=== PATIENT | female | born 1955 | race Asian ===

== ENCOUNTER 2024-10-08 11:53 | Inpatient (IN) | payer OTHER ==
[~2024-10-08] VITALS: Ht 165.1 cm; Wt 107.5 kg
[2024-10-08] VITALS (13 sets, daily range): BP systolic 119; BP diastolic 44; PULSE 71–105; RESP 22–26; TEMP 98.9; O2SAT 94–100
[~2024-10-08 11:53] MED LIST: AMIO200T73 PO; AMOX500C2 PO
[2024-10-08] MEDS ORDERED: 0.9% SODIUM CHLORIDE 10 ML SYRINGE IVP PRN (12:00)
[2024-10-08] MEDS ORDERED: CALCIUM GLUCONATE 0.465 MEQ/ML 10 ML VIAL ONE (12:13)
[2024-10-08] MEDS ORDERED: NOREPINEPHRINE 8 MG/0.9 % NACL 250 ML IV ONE (12:15)
[2024-10-08 12:37] LABS: ABG BASE EXCESS 27.1 mmol/L (-2.0-3.0); ABG CARBOXYHEMOGLOBIN 1.8 % (0.5-1.5); ABG HCO3 47.4 mmol/L (21.0-28.0); ABG METHEMOGLOBIN 1.0 % (0.0-1.5); ABG OXYGEN CONTENT 12.7 mL/dL (15.0-23.0); ABG OXYGEN SATURATION 99.8 % (94.0-98.0); ABG OXYHEMOGLOBIN 97.0 % (94.0-98.0); ABG TOTAL HEMOGLOBIN 9.0 G/dL (12.0-16.0); FRACTIONATED INSPIRED OXYGEN 100.0 % (21-100.0); PO2, ARTERIAL BG 181.2 mmHg (83.0-108.0); SOURCE, BLOOD GAS ARTERIAL; TEMPERATURE, FAHRENHEIT, BG 97.8 FAHREN (96.0-98.6)
[2024-10-08 12:39] LABS: ABG PCO2 133 mmHg (32.0-45.0); ABG PH 7.229 (7.350-7.450); SITE, BLOOD GAS LFT RADIAL
[2024-10-08 12:40] LABS: ALLEN TEST, BLOOD GAS Positive; O2 DEVICE,BLOOD GAS BIPAP (ROOM AIR); SET RATE, BG 20.0 min.; SPONTANEOUS VT, BG 285 ml
[2024-10-08 12:41] LABS: PLATELET COUNT (AUTO) 233 K/uL (150-450); RED BLOOD CELL COUNT(AUTO) 2.69 MIL/uL (4.00-5.20); RED CELL DISTRIBUTION WIDTH 20.6 % (11.5-14.5); WHITE BLOOD COUNT (AUTO) 5.6 K/uL (4.5-11.0)
[2024-10-08] MEDS ORDERED: ETOMIDATE 2 MG/ML 10 ML VIAL ONE (12:44)
[2024-10-08] MEDS ORDERED: ROCURONIUM BROMIDE 10 MG/ML 5 ML VIAL ONE (12:45)
[2024-10-08 12:48] LABS: CALCIUM, TOTAL 8.6 mg/dL (8.8-10.5); CREATININE 0.80 mg/dL (0.60-1.30); GLOMERULAR FILTR. RATE CALC > 60 mL/min (>60); GLUCOSE,RANDOM 138 mg/dL (70-110); SODIUM SERUM 143 mmol/L (136-145); UREA NITROGEN, BLOOD 21 mg/dL (7-18)
[2024-10-08 12:56] LABS: LACTIC ACID 0.5 mmol/L (0.4-2.0)
[2024-10-08] MEDS ORDERED: PROPOFOL 1000 MG/ISO-OSM 100 ML ONE (12:57)
[2024-10-08] MEDS: CALCIUM GLUCONATE 100 MG/ML 10 ML IVP ONE (12:59)
[2024-10-08] MEDS: FUROSEMIDE 40 MG/4 ML VIAL IVP ONE (13:00)
[2024-10-08] MEDS ORDERED: SODIUM CHLORIDE 0.9% 500 ML IV ONE (13:05)
[2024-10-08 13:24] LABS: COVID AG,FIA SOURCE NASAL SWAB
[2024-10-08] MEDS: ETOMIDATE 2 MG/ML 10 ML VIAL IVP ONE (13:49)
[2024-10-08] MEDS: FUROSEMIDE 40 MG/4 ML VIAL IVP SCH (13:50)
[2024-10-08] MEDS: ROCURONIUM BROMIDE 10 MG/ML 5 ML VIAL IVP ONE ×2 (13:51→13:57)
[2024-10-08] MEDS: PROPOFOL 1000 MG/ISO-OSM 100 ML IV PRN (13:52)
[2024-10-08] MEDS: BUMETANIDE 0.25 MG/ML 4 ML VIAL IVP ONE (13:52)
[2024-10-08 14:18] LABS: APPEARANCE,URINE CLEAR (CLEAR); GLUCOSE, URINE (UA) NEGATIVE (NEGATIVE); LEUKOCYTE ESTERASE ,URINE NEGATIVE (NEGATIVE); NITRATE,URINE NEGATIVE (NEGATIVE); OCCULT BLOOD,URINE NEGATIVE (NEGATIVE); SPECIFIC GRAVITIY, URINE 1.013 (1.003-1.030)
[2024-10-08 14:22] LABS: TROPONIN I-HIGH SENSITIVITY 75 ng/L (<51)
[2024-10-08 14:26] LABS: ABG BASE EXCESS 24.0 mmol/L (-2.0-3.0); ABG CARBOXYHEMOGLOBIN 1.6 % (0.5-1.5); ABG HCO3 45.6 mmol/L (21.0-28.0); ABG METHEMOGLOBIN 1.0 % (0.0-1.5); ABG OXYGEN CONTENT 12.1 mL/dL (15.0-23.0); ABG OXYGEN SATURATION 99.7 % (94.0-98.0); ABG OXYHEMOGLOBIN 97.1 % (94.0-98.0); ABG PH 7.484 (7.350-7.450); ABG TOTAL HEMOGLOBIN 8.4 G/dL (12.0-16.0); FRACTIONATED INSPIRED OXYGEN 100.0 % (21-100.0); PO2, ARTERIAL BG 242.5 mmHg (83.0-108.0); SOURCE, BLOOD GAS ARTERIAL; TEMPERATURE, FAHRENHEIT, BG 99.7 FAHREN (96.0-98.6)
[2024-10-08 14:29] LABS: INFLUENZA TYPE A NEGATIVE FOR TYPE A (NEGATIVE); INFLUENZA TYPE B NEGATIVE FOR TYPE B (NEGATIVE); SARS-COV2 (COVID) ANTIGEN,FIA Negative (Negative)
[2024-10-08 14:31] LABS: ABG PCO2 65 mmHg (32.0-45.0)
[2024-10-08 14:32] LABS: ABG A-A DIFF O2 404.2 mmHg (10-20.0); O2 DEVICE,BLOOD GAS VENTILATOR (ROOM AIR); PATIENT RATE, BG 26.0 min.; PEEP,BG 5 cm H2O; SET RATE, BG 26.0 min.; SITE, BLOOD GAS ARTERIAL LINE; SPONTANEOUS VT, BG 447 ml; VT, ABG 440 ml
[2024-10-08] MEDS: ALBUTEROL SULFATE 2.5 MG/0.5 ML NEB SOLUTION NEB SCH (14:45)
[2024-10-08] MEDS: IPRATROPIUM BROMIDE 0.5 MG/2.5 ML NEB SOLUTION NEB SCH (14:45)
[2024-10-08] MEDS: DOXYCYCLINE HYCLATE 100 MG in DEXTROSE 5%-WATER 100 ML IV SCH (14:53)
[2024-10-08] MEDS: CefTRIAXone SODIUM 2 GM in DEXTROSE 5%-WATER 50 ML IV SCH (14:53)
[2024-10-08] MEDS: SODIUM CHLORIDE 0.9% 250 ML IV ONE (15:08)
[2024-10-08] MEDS: FentaNYL CIT 1000MCG/0.9% NACL 100 ML IV PRN (17:17)
[2024-10-08] MEDS ORDERED: MULT-1303 PO (18:28)
[2024-10-08] MEDS ORDERED: ASCO500 PO (18:28)
[2024-10-08] MEDS ORDERED: APIX5TAB PO (18:28)
[2024-10-08] MEDS ORDERED: LACT1CAP79 PO (18:28)
[2024-10-08] MEDS ORDERED: ATOR40TA28 PO (18:28)
[2024-10-08] MEDS ORDERED: DOXY-171 PO (18:28)
[2024-10-08] MEDS ORDERED: TIOT4MIS3 IH (18:28)
[2024-10-08] MEDS ORDERED: ASPI-1450 PO (18:28)
[2024-10-08] MEDS ORDERED: FURO40TA6 PO (18:28)
[2024-10-08] MEDS ORDERED: PANT-31 PO (18:28)
[2024-10-08] MEDS ORDERED: ZINC50CA3 PO (18:28)
[2024-10-08] MEDS ORDERED: IPRA3AMP24 NEB (18:28)
[2024-10-08] MEDS ORDERED: MIDO5TAB29 PO (18:28)
[2024-10-08] MEDS ORDERED: CARV12 PO (18:28)
[2024-10-08] MEDS: ACETYLCYSTEINE 10% 100 MG/ML 4 ML NEB SOLUTION NEB SCH (20:43)
[2024-10-08] MEDS: HEPARIN SODIUM,PORCINE 5,000 UNITS/ML VIAL SQ SCH (21:13)
[2024-10-09] VITALS (30 sets, daily range): BP systolic 100–125; BP diastolic 40–45; PULSE 70–93; RESP 20–23; TEMP 97.2–98.6; O2SAT 94–100
[2024-10-09] MEDS ORDERED: MORPHINE SULFATE 2 MG/ML SYRINGE IVP PRN (01:15)
[2024-10-09] MEDS ORDERED: IPRATROPIUM BROMIDE 0.5 MG/2.5 ML NEB SOLUTION NEB PRN (01:15)
[2024-10-09] MEDS ORDERED: ACETAMINOPHEN 325 MG TABLET PO PRN (01:15)
[2024-10-09] MEDS ORDERED: HYDROCODONE/ACETAMINOPHEN 5-325 MG TABLET PO PRN (01:15)
[2024-10-09] MEDS ORDERED: MAGNESIUM HYDROXIDE SUSPENSION 30 ML UDCUP PO PRN (01:15)
[2024-10-09] MEDS ORDERED: ONDANSETRON HCL 4 MG/2 ML VIAL IVP PRN (01:15)
[2024-10-09] MEDS ORDERED: BISACODYL 10 MG RECTAL RECTAL SUPPOSITORY PR PRN (01:15)
[2024-10-09 02:28] LABS: PLATELET COUNT (AUTO) 211 K/uL (150-450); RED BLOOD CELL COUNT(AUTO) 2.50 MIL/uL (4.00-5.20); RED CELL DISTRIBUTION WIDTH 20.1 % (11.5-14.5); WHITE BLOOD COUNT (AUTO) 3.4 K/uL (4.5-11.0)
[2024-10-09 02:37] LABS: CALCIUM, TOTAL 8.1 mg/dL (8.8-10.5); CREATININE 0.77 mg/dL (0.60-1.30); GLOMERULAR FILTR. RATE CALC > 60 mL/min (>60); GLUCOSE,RANDOM 159 mg/dL (70-110); SODIUM SERUM 144 mmol/L (136-145); UREA NITROGEN, BLOOD 22 mg/dL (7-18)
[2024-10-09 02:47] LABS: TROPONIN I-HIGH SENSITIVITY 88 ng/L (<51)
[2024-10-09] MEDS ORDERED: POTASSIUM CHL 10 MEQ/WATER 50 ML IV PRN ×2 (03:00)
[2024-10-09] MEDS ORDERED: POTASSIUM CHLORIDE 10% 40 MEQ/30 ML LIQUID UDCUP NG PRN ×2 (03:00)
[2024-10-09] MEDS: ALBUTEROL SULFATE 2.5 MG/0.5 ML NEB SOLUTION NEB PRN (03:01)
[2024-10-09] MEDS ORDERED: SODIUM CHLORIDE 0.9% 250 ML IV ONE ×2 (03:17→15:38)
[2024-10-09] MEDS: POTASSIUM CHL 10 MEQ/WATER 50 ML IV PRN (03:22)
[2024-10-09] MEDS ORDERED: MAGNESIUM SULFATE 4 GM/WATER 100 ML IV PRN (08:30)
[2024-10-09] MEDS ORDERED: MAGNESIUM OXIDE 400 MG TABLET PO PRN (08:30)
[2024-10-09] MEDS: PANTOPRAZOLE SODIUM 40 MG/VIAL IVP SCH (08:34)
[2024-10-09] MEDS: ETHYL ALCOHOL 62% ANTISEPTIC NASAL SANITIZER 0.6 ML AMPUL NASAL SCH (08:34)
[2024-10-09] MEDS: AMIODARONE HCL 200 MG TABLET NG SCH (08:35)
[2024-10-09] MEDS: DOCUSATE SODIUM 100 MG CAPSULE NG SCH (08:35)
[2024-10-09] MEDS: APIXABAN 5 MG TABLET NG SCH (08:36)
[2024-10-09] MEDS: ASPIRIN 81 MG CHEWABLE TABLET NG SCH (08:36)
[2024-10-09] MEDS: ASCORBIC ACID 500 MG TABLET PO SCH (08:36)
[2024-10-09] MEDS: DOCUSATE SODIUM 100 MG/10 ML LIQUID UDCUP PO SCH (11:30)
[2024-10-09] MEDS: SODIUM CHLORIDE 0.9% 250 ML IV ONE (11:45)
[2024-10-09] MEDS: POTASSIUM CHL 10 MEQ/WATER 50 ML IV SCH ×2 (11:45→19:56)
[2024-10-09 12:01] LABS: ABG BASE EXCESS 17.7 mmol/L (-2.0-3.0); ABG CARBOXYHEMOGLOBIN 1.2 % (0.5-1.5); ABG HCO3 39.8 mmol/L (21.0-28.0); ABG METHEMOGLOBIN 0.3 % (0.0-1.5); ABG OXYGEN CONTENT 11.0 mL/dL (15.0-23.0); ABG OXYGEN SATURATION 96.0 % (94.0-98.0); ABG OXYHEMOGLOBIN 94.6 % (94.0-98.0); ABG PCO2 48 mmHg (32.0-45.0); ABG PH 7.545 (7.350-7.450); ABG TOTAL HEMOGLOBIN 8.2 G/dL (12.0-16.0); FRACTIONATED INSPIRED OXYGEN 40.0 % (21-100.0); PO2, ARTERIAL BG 77.5 mmHg (83.0-108.0); SITE, BLOOD GAS ARTERIAL LINE; SOURCE, BLOOD GAS ARTERIAL; TEMPERATURE, FAHRENHEIT, BG 98.2 FAHREN (96.0-98.6)
[2024-10-09 12:02] LABS: O2 DEVICE,BLOOD GAS VENTILATOR (ROOM AIR); PATIENT RATE, BG 22.0 min.; PEEP,BG 5 cm H2O; SET RATE, BG 22.0 min.; SPONTANEOUS VT, BG 425 ml; VT, ABG 440 ml
[2024-10-09 12:40] LABS: % IRON SATURATION 10.3 % (22-44); IRON, SERUM 29.0 mcg/dL (50-175)
[2024-10-09 12:55] LABS: LACTIC ACID 0.9 mmol/L (0.4-2.0)
[2024-10-09] MEDS: PIPERACILLIN/TAZO 3.375 GM/D5W 50 ML IV SCH (14:24)
[2024-10-09] MEDS ORDERED: DEXTROSE 50%-WATER 25 GM/50 ML SYRINGE IVP PRN (14:45)
[2024-10-09] MEDS: INSULIN LISPRO 100 UNITS/ML SQ PRN (16:23)
[2024-10-09] MEDS: MAGNESIUM SULFATE 2 GM/WATER 50 ML IV PRN (17:17)
[2024-10-09 17:29] LABS: CALCIUM, TOTAL 8.2 mg/dL (8.8-10.5); CREATININE 0.80 mg/dL (0.60-1.30); GLOMERULAR FILTR. RATE CALC > 60 mL/min (>60); GLUCOSE,RANDOM 167 mg/dL (70-110); SODIUM SERUM 144 mmol/L (136-145); UREA NITROGEN, BLOOD 26 mg/dL (7-18)
[2024-10-09 19:50] LABS: GLUCOMETER DEV NAME(LOC) ICUN.6; GLUCOSE,POINT OF CARE 159 MG/DL (70-110)
[2024-10-09] MEDS: ATORVASTATIN CALCIUM 40 MG TABLET NG SCH (20:26)
[2024-10-09] MEDS: DOCUSATE SODIUM 100 MG/10 ML LIQUID UDCUP NG SCH (20:26)
[2024-10-10] VITALS (28 sets, daily range): BP systolic 102–139; BP diastolic 42–54; PULSE 70–94; RESP 17–30; TEMP 96.7–97.7; O2SAT 90–99
[2024-10-10 02:11] LABS: GLUCOMETER DEV NAME(LOC) ICU.S7; GLUCOSE,POINT OF CARE 183 MG/DL (70-110)
[2024-10-10] MEDS ORDERED: SODIUM CHLORIDE 0.9% 250 ML IV ONE ×2 (03:39→10:27)
[2024-10-10 05:46] LABS: GLUCOMETER DEV NAME(LOC) ICU.S7; GLUCOSE,POINT OF CARE 172 MG/DL (70-110)
[2024-10-10 05:48] LABS: PLATELET COUNT (AUTO) 240 K/uL (150-450); RED BLOOD CELL COUNT(AUTO) 2.63 MIL/uL (4.00-5.20); RED CELL DISTRIBUTION WIDTH 20.8 % (11.5-14.5); WHITE BLOOD COUNT (AUTO) 3.6 K/uL (4.5-11.0)
[2024-10-10 06:16] LABS: ASPARTATE AMINOTRANSFERASE 19 U/L (15-37); CALCIUM, TOTAL 8.1 mg/dL (8.8-10.5); CREATININE 0.92 mg/dL (0.60-1.30); GLOMERULAR FILTR. RATE CALC > 60 mL/min (>60); GLUCOSE,RANDOM 196 mg/dL (70-110); MAGNESIUM MATERNAL 1.80 mg/dL (4.90-7.30); PHOSPHORUS 3.3 mg/dL (2.5-4.9); SODIUM SERUM 143 mmol/L (136-145); TOTAL PROTEIN, SERUM 5.5 g/dL (6.4-8.2); UREA NITROGEN, BLOOD 28 mg/dL (7-18)
[2024-10-10] MEDS: POTASSIUM CHL 10 MEQ/WATER 50 ML IV PRN (08:15)
[2024-10-10] MEDS: POTASSIUM CHL 10 MEQ/WATER 50 ML IV SCH ×2 (08:40→14:54)
[2024-10-10] MEDS: DOCUSATE SODIUM 100 MG CAPSULE GT SCH (10:45)
[2024-10-10] MEDS: POLYETHYLENE GLYCOL 3350 17 GM PACKET GT SCH (11:23)
[2024-10-10] MEDS: SENNOSIDES 8.8 MG/5 ML SYRUP UDCUP GT ONE (11:23)
[2024-10-10] MEDS: POTASSIUM CHLORIDE 20 MEQ ER TABLET GT ONE (12:40)
[2024-10-10 13:31] LABS: GLUCOMETER DEV NAME(LOC) ICUN.6; GLUCOSE,POINT OF CARE 196 MG/DL (70-110)
[2024-10-10] MEDS: MIDAZOLAM HCL 100 MG in SODIUM CHLORIDE 0.9% 180 ML IV PRN (13:36)
[2024-10-10 15:14] LABS: ABG BASE EXCESS 15.1 mmol/L (-2.0-3.0); ABG CARBOXYHEMOGLOBIN 0.7 % (0.5-1.5); ABG HCO3 37.2 mmol/L (21.0-28.0); ABG METHEMOGLOBIN 0.0 % (0.0-1.5); ABG OXYGEN CONTENT 11.6 mL/dL (15.0-23.0); ABG OXYGEN SATURATION 96.1 % (94.0-98.0); ABG OXYHEMOGLOBIN 95.4 % (94.0-98.0); ABG PCO2 54 mmHg (32.0-45.0); ABG PH 7.473 (7.350-7.450); ABG TOTAL HEMOGLOBIN 8.5 G/dL (12.0-16.0); FRACTIONATED INSPIRED OXYGEN 40.0 % (21-100.0); PO2, ARTERIAL BG 87.5 mmHg (83.0-108.0); SOURCE, BLOOD GAS ARTERIAL; TEMPERATURE, FAHRENHEIT, BG 97.6 FAHREN (96.0-98.6)
[2024-10-10 15:15] LABS: APPEARANCE,SPUN,BODY FLUID CLEAR (CLEAR); APPEARANCE,UNSPUN,BODY FLUID TURBID (CLEAR); BASOPHILS,BODY FLUID 0 %; BODY FLUID RBC 38.0 /cu. mm.; COLOR,BODY FLUID LT YELLOW (LT YELLOW); EOSINOPHILS,BF (ANAL) 0 %; LYMPHOCYTES,BODY FLUID 17 %; MONOCYTES,BODY FLUID 3 %; NEUTROPHILS,BODY FLUID 80 %; PH, BODY FLUID 8.0; SPECIMENTYPE,BODY FLUID PLEURAL; TOTAL VOLUME,BODY FLUID 280 mL; WBC, BODY FLUID 299 /cu. mm.
[2024-10-10 15:17] LABS: ABG A-A DIFF O2 136.2 mmHg (10-20.0); O2 DEVICE,BLOOD GAS VENTILATOR (ROOM AIR); PATIENT RATE, BG 16.0 min.; SITE, BLOOD GAS ARTERIAL LINE; VENT MODE, BG CPAP (ROOM AIR)
[2024-10-10 15:18] LABS: CPAP, BG 5 cm H2O; PRESSURE SUPPORT, BG 8 cm H2O; SPONTANEOUS VT, BG 397 ml
[2024-10-10] MEDS: MAGNESIUM SULFATE 1 GM in DEXTROSE 5%-WATER 50 ML IV ONE (17:12)
[2024-10-10 19:06] LABS: GLUCOMETER DEV NAME(LOC) ICU.S7; GLUCOSE,POINT OF CARE 196 MG/DL (70-110)
[2024-10-11] VITALS (23 sets, daily range): BP systolic 27–132; BP diastolic 45–53; PULSE 70–87; RESP 14–22; TEMP 97.4–98.6; O2SAT 93–100
[2024-10-11 01:36] LABS: GLUCOMETER DEV NAME(LOC) ICUN.6; GLUCOSE,POINT OF CARE 198 MG/DL (70-110)
[2024-10-11 06:00] LABS: GLUCOMETER DEV NAME(LOC) ICU.S7; GLUCOSE,POINT OF CARE 225 MG/DL (70-110)
[2024-10-11 06:02] LABS: PLATELET COUNT (AUTO) 242 K/uL (150-450); RED BLOOD CELL COUNT(AUTO) 2.70 MIL/uL (4.00-5.20); RED CELL DISTRIBUTION WIDTH 21.0 % (11.5-14.5); WHITE BLOOD COUNT (AUTO) 2.9 K/uL (4.5-11.0)
[2024-10-11 06:53] LABS: CALCIUM, TOTAL 8.2 mg/dL (8.8-10.5); CREATININE 0.79 mg/dL (0.60-1.30); GLOMERULAR FILTR. RATE CALC > 60 mL/min (>60); GLUCOSE,RANDOM 232 mg/dL (70-110); SODIUM SERUM 141 mmol/L (136-145); UREA NITROGEN, BLOOD 33 mg/dL (7-18)
[2024-10-11 07:02] LABS: MAGNESIUM MATERNAL 1.8 mg/dL (4.90-7.30); PHOSPHORUS 3.5 mg/dL (2.5-4.9)
[2024-10-11 07:13] LABS: RBC MORPHOLOGY COMMENT ABNORMAL RBC MORPH
[2024-10-11] MEDS: *CLINICAL-LEVOFLOXACIN IVPB DOSING CLINICAL ONE (10:12)
[2024-10-11] MEDS ORDERED: POTASSIUM CHLORIDE 10% 40 MEQ/30 ML LIQUID UDCUP GT ONE (11:00)
[2024-10-11 11:26] LABS: ABG BASE EXCESS 9.9 mmol/L (-2.0-3.0); ABG CARBOXYHEMOGLOBIN 0.4 % (0.5-1.5); ABG HCO3 32.5 mmol/L (21.0-28.0); ABG METHEMOGLOBIN 0.1 % (0.0-1.5); ABG OXYGEN CONTENT 12.6 mL/dL (15.0-23.0); ABG OXYGEN SATURATION 97.6 % (94.0-98.0); ABG OXYHEMOGLOBIN 97.1 % (94.0-98.0); ABG PCO2 50 mmHg (32.0-45.0); ABG PH 7.446 (7.350-7.450); ABG TOTAL HEMOGLOBIN 9.1 G/dL (12.0-16.0); FRACTIONATED INSPIRED OXYGEN 40.0 % (21-100.0); O2 DEVICE,BLOOD GAS VENTILATOR (ROOM AIR); PATIENT RATE, BG 23.0 min.; PEEP,BG 5 cm H2O; PO2, ARTERIAL BG 109.9 mmHg (83.0-108.0); PRESSURE SUPPORT, BG 5 cm H2O; SITE, BLOOD GAS ARTERIAL LINE; SOURCE, BLOOD GAS ARTERIAL; SPONTANEOUS VT, BG 409 ml; TEMPERATURE, FAHRENHEIT, BG 98.2 FAHREN (96.0-98.6); VENT MODE, BG Press. Support Vent. (ROOM AIR)
[2024-10-11] MEDS: MAGNESIUM SULFATE 1 GM in DEXTROSE 5%-WATER 50 ML IV ONE (11:29)
[2024-10-11] MEDS: LEVOFLOXACIN 750 MG/D5% WATER 150 ML IV SCH (11:32)
[2024-10-11] MEDS: POTASSIUM CHLORIDE 10% 40 MEQ/30 ML LIQUID UDCUP NG ONE (11:32)
[2024-10-11] MEDS ORDERED: SODIUM CHLORIDE 0.9% 250 ML IV ONE (11:47)
[2024-10-11 12:31] LABS: GLUCOMETER DEV NAME(LOC) ICU.S7; GLUCOSE,POINT OF CARE 201 MG/DL (70-110)
[2024-10-11 14:07] LABS: GLUCOSE, BODY FLUID,REF 191.0 mg/dL; LDH,BODY FLUID,REF 100.0 IU/L; TOTAL PROTEIN,BODY FLUID,REF 1.3 g/dL
[2024-10-11] MEDS: BUMETANIDE 0.25 MG/ML 4 ML VIAL IVP SCH (15:09)
[2024-10-11 18:05] LABS: GLUCOMETER DEV NAME(LOC) ICUN.6; GLUCOSE,POINT OF CARE 187 MG/DL (70-110)
[2024-10-11] MEDS ORDERED: SODIUM CHLORIDE 0.9% 500 ML IV ONE (23:09)
[2024-10-11 23:51] LABS: GLUCOMETER DEV NAME(LOC) ICUN.6; GLUCOSE,POINT OF CARE 191 MG/DL (70-110)
[2024-10-12] VITALS (11 sets, daily range): BP systolic 117–134; BP diastolic 45–48; PULSE 18–94; RESP 14–23; TEMP 97.8–98.5; O2SAT 94–100
[2024-10-12 05:45] LABS: GLUCOMETER DEV NAME(LOC) ICU.S7; GLUCOSE,POINT OF CARE 171 MG/DL (70-110)
[2024-10-12 06:28] LABS: PLATELET COUNT (AUTO) 232 K/uL (150-450); RED BLOOD CELL COUNT(AUTO) 2.80 MIL/uL (4.00-5.20); RED CELL DISTRIBUTION WIDTH 20.4 % (11.5-14.5); WHITE BLOOD COUNT (AUTO) 3.0 K/uL (4.5-11.0)
[2024-10-12 06:35] LABS: CALCIUM, TOTAL 8.0 mg/dL (8.8-10.5); CREATININE 0.76 mg/dL (0.60-1.30); GLOMERULAR FILTR. RATE CALC > 60 mL/min (>60); GLUCOSE,RANDOM 197 mg/dL (70-110); SODIUM SERUM 143 mmol/L (136-145); UREA NITROGEN, BLOOD 31 mg/dL (7-18)
[2024-10-12 06:39] LABS: MAGNESIUM MATERNAL 1.7 mg/dL (4.90-7.30); PHOSPHORUS 3.4 mg/dL (2.5-4.9)
[2024-10-12] MEDS ORDERED: SODIUM CHLORIDE 0.9% 250 ML IV ONE (11:23)
[2024-10-12] MEDS: SPIRONOLACTONE 25 MG TABLET PO SCH (12:14)
[2024-10-12] MEDS ORDERED: BUMETANIDE 0.25 MG/ML 4 ML VIAL IVP SCH (21:00)
== END 2024-10-12 14:40 | disposition short-term general hospital (02) | DRG 720 ==
LOC: EMS 11:56 → EDH 14:11 → ICU 16:25
PROVIDERS: ADMIT Hospitalist; ATTEND Hospitalist
PROC: 5A1945Z Respiratory Ventilation, 24-96 Consecutive Hours (ICD-10-PCS; principal; 2024-10-08)
PROC: 0BH17EZ Insertion of Endotracheal Airway into Trachea, Via Natural or Artificial Opening (ICD-10-PCS; 2024-10-08)
PROC: 5A09357 Assistance with Respiratory Ventilation, Less than 24 Consecutive Hours, Continuous Positive Airway Pressure (ICD-10-PCS; 2024-10-08)
PROC: 0W993ZZ Drainage of Right Pleural Cavity, Percutaneous Approach (ICD-10-PCS; 2024-10-10)
DX: A41.9 Sepsis, unspecified organism (principal); J96.22 Acute and chronic respiratory failure with hypercapnia; I50.23 Acute on chronic systolic (congestive) heart failure; J96.21 Acute and chronic respiratory failure with hypoxia; J15.69 Pneumonia due to other Gram-negative bacteria; J69.0 Pneumonitis due to inhalation of food and vomit; J90 Pleural effusion, not elsewhere classified; D70.9 Neutropenia, unspecified; E87.3 Alkalosis; I27.21 Secondary pulmonary arterial hypertension; I11.0 Hypertensive heart disease with heart failure; D64.9 Anemia, unspecified; E11.9 Type 2 diabetes mellitus without complications; J44.1 Chronic obstructive pulmonary disease with (acute) exacerbation; E87.6 Hypokalemia; I25.10 Atherosclerotic heart disease of native coronary artery without angina pectoris; I25.5 Ischemic cardiomyopathy; I48.0 Paroxysmal atrial fibrillation; I70.8 Atherosclerosis of other arteries; E78.00 Pure hypercholesterolemia, unspecified; J44.0 Chronic obstructive pulmonary disease with (acute) lower respiratory infection; L03.113 Cellulitis of right upper limb; E83.42 Hypomagnesemia; E66.2 Morbid (severe) obesity with alveolar hypoventilation; K21.9 Gastro-esophageal reflux disease without esophagitis; F41.9 Anxiety disorder, unspecified; Z20.822 Contact with and (suspected) exposure to COVID-19; Z68.39 Body mass index [BMI] 39.0-39.9, adult; Z79.899 Other long term (current) drug therapy; Z87.01 Personal history of pneumonia (recurrent); Z95.810 Presence of automatic (implantable) cardiac defibrillator
CPT/HCPCS: 31500; 32555; 36556; 51702; 70450; 71045; 71250; 76942; 80048; 80053; 81003; 82040; 82465; 82805; 82945; 82962; 83540; 83550; 83605; 83615; 83690; 83735; 83880; 83986; 84100; 84132; 84145; 84157; 84484; 85025; 85045; 85610; 87015; 87040; 87070; 87075; 87081; 87101; 87186; 87205; 87206; 87804; 89051; 92610; 93005; 93306; 94002; 94003; 94640; 94660; 94669; 96374; 96375; 99291; J0610; J0696; J1644; J1938; J1956; J2250; J2470; J2543; J2704; J2919; J3010; J3475; J3480; J3490; J7040; J7050; J7060; 36415-L1; 36415-TC; J7613